=== PATIENT | male | born 1975 | race Caucasian/White ===

== ENCOUNTER → 2024-06-02 07:26 | Outpatient (REF) | payer BC, SELFPAY | LOC: HWRAD 07:26 | PROVIDERS: ATTENDING PHYSICIAN Internal Medicine Gastroenterology; FAMILY PHYSICIAN Family Medicine | DX: K74.00 Hepatic fibrosis, unspecified (principal) | CPT/HCPCS: 76700 ==

== ENCOUNTER 2024-07-14 08:00 | Day surgery (SDC) | payer BC, SELFPAY ==
[2024-07-14 14:21] VITALS: BMI 32.6
[2024-07-14 14:30] LABS: Glucose - Point of Care 78 mg/dl (70-99)
--- NOTE | 2024-07-14 14:58 | PTCARENOTE ---
Report given to Dary RHODES.
[2024-07-14 16:56] VITALS: BP 90/75
[2024-07-14 17:00] VITALS: BP 107/55
[2024-07-14 17:15] VITALS: BP 116/70
[2024-07-14 17:24] VITALS: BP 114/70
== END 2024-07-14 16:53 | disposition home or self-care (01) ==
LOC: GI 08:00
PROVIDERS: ATTENDING PHYSICIAN Internal Medicine Gastroenterology
DX: Z09 Encounter for follow-up examination after completed treatment for conditions other than malignant neoplasm (principal); K31.7 Polyp of stomach and duodenum; K31.89 Other diseases of stomach and duodenum
CPT/HCPCS: 43251; 43239; 43237; 88305; 82962; 88313

== ENCOUNTER → 2024-08-12 10:12 | Outpatient (REF) | payer BC, SELFPAY | LOC: PAVMRI 10:12 | PROVIDERS: ATTENDING PHYSICIAN Internal Medicine Gastroenterology; FAMILY PHYSICIAN Psychiatry & Neurology Neurology | DX: K74.00 Hepatic fibrosis, unspecified (principal) | CPT/HCPCS: 74183; A9575 ==

== ENCOUNTER → 2024-08-18 11:57 | Outpatient (REF) | payer BC, SELFPAY | LOC: RAD 11:57 | PROVIDERS: ATTENDING PHYSICIAN Nurse Practitioner Adult Health | DX: R06.00 Dyspnea, unspecified (principal) | CPT/HCPCS: 71046 ==

== ENCOUNTER → 2024-11-27 10:25 | Outpatient (REF) | payer BC, SELFPAY | LOC: RAD 10:25 | PROVIDERS: ATTENDING PHYSICIAN Family Medicine | DX: R10.9 Unspecified abdominal pain (principal) | CPT/HCPCS: 74018 ==

== ENCOUNTER 2025-03-01 12:08 | Emergency (ER) | payer BC, SELFPAY ==
[2025-03-01 12:14] VITALS: BP 152/90
[2025-03-01 12:28] VITALS: BMI 28.9
--- NOTE | 2025-03-01 12:58 | ED.GENMED ---
History of Present Illness
General
Chief Complaint: Skin Problem
Source: patient
Exam Limitations: none
Time Seen by Provider: 03/01/25 12:39
Nursing documentation reviewed up to this point in time: agreed with
History of Present Illness
History of Present Illness:
Patient presents to ED secondary to persistent right hand swelling with initial itching sensation, which now has become painful, since yesterday afternoon. [place] He had come out of the water, when he
noticed initial itching sensation with puncture wound on top of his right hand. Since then, symptoms have persisted or worsened. Denies fever or chills. Denies previous history of similar symptoms.
Past History
Past History
ED Past Medical History: Arrthythmia (VT), Cancer (Non-Hodgkin's lymphoma ), GERD, HTN, Psychiatric (Anxiety, ADHD ) and Other (Asthmatic bronchitis, cardiomyopathy status post chemotherapy as a child from Adriamycin, pulmonary fibrosis status post
radiation therapy only 40% of lung capacity, Non Hodgkins Lymphoma,)
ED Past Surgical History: Cardiac (Cardiac catheter with EPS study in 1992 ), Orthopedic (Left ankle surgery ) and Other (Radiation therapy to chest for non-Hodgkin's lymphoma in 1982 and radiation therapy 2 testicular lymphoma in 1984. )
Social History
Tobacco: Non-smoker
Alcohol: Occasional (Two glasses of vodka/night)
Personal:
Living: with family
Review of Systems
Review of Systems
Allergies reviewed?: Yes
All Other Systems: ROS reviewed and negative except as documented in HPI and ROS
Constitutional: Reports no symptoms; Denies fever
Musculoskeletal: Reports other (Hand swelling with pain)
Skin: Reports itching
Neurological: Reports no symptoms
Phy Exam
Physical Exam
Physical Exam:
Physical Exam
General: mild distress, not acutely ill. afebrile
Head: nc/at. eomi
Neck: supple. no meningeal signs
Neuro: alert and oriented x 3. no focal neurological deficits
Skin: puncture wound noted over dorsal aspect of right hand between 3rd/4th finger with diffuse swelling without warmth/ecchymosis
Psychiatric: well kept. interactive and cooperative
Extremities: no edema. no calf tenderness.
Course
Orders/Labs/Results
Orders:
Orders
03/01/25 13:03
Amoxicillin 875 mg/Clav 125 mg [Augmentin 875 mg/125 mg] 1 tablet PO NOW STA
Dexamethasone Pf [Decadron] 10 mg PO NOW STA
Vital Signs
Initial and Last Documented VS:
Initial Vital Signs
Temp Pulse Resp BP Pulse Ox
98.7 F 102 16 152/90 98
03/01/25 12:14 03/01/25 12:14 03/01/25 12:14 03/01/25 12:14 03/01/25 12:14
Last Documented Vital Signs
Temp Pulse Resp BP Pulse Ox
98.7 F 102 16 152/90 98
03/01/25 12:14 03/01/25 12:14 03/01/25 12:14 03/01/25 12:14 03/01/25 13:03
MDM/Problems Addressed
MDM/Problems Addressed:
History and exam consistent with likely local inflammatory response to unknown insect or others. Discussed conservative management via ice/Benadryl/steroids. However, given patient's previous history of skin infection, patient requesting empiric
antibiotics, which I believe is not unreasonable. As such, patient will be started on Augmentin x 3 days, with specific instructions to follow-up with PCP for reevaluation in 2 to 3 days, or to return to ED with worsening symptoms.
*Pulse Oximetry
SaO2: 98
Oxygen Mode of Delivery: Room air
Patient hypoxic: no
*Critical Care Note
Total Time (30-74mins, 75-104mins- exclusive of procedures): Not Applicable
ED Attending Note
-
Portions of this chart may have been created with voice recognition software.� Occasional wrong word or��sound alike� substitutions may have occurred due to the inherent limitations of voice recognition software.
Discharge Plan
Departure
Patient Disposition: Home (Routine Discharge)
Date of Disposition: 03/01/25
Time of Disposition: 13:03
Patient with high blood pressure during this ER visit?: Yes
Condition: Good
Discharge Problem:
Local inflammatory response
Instructions: Wound Care (DC)
Prescriptions:
New
amoxicillin-pot clavulanate 875-125 mg tablet
1 tab PO BID Qty: 5 0RF
No Action
pantoprazole 40 mg Tablet,Delayed Release (Dr/Ec)
20 mg PO DAILY
lorazepam 1 mg Tablet
1 mg PO BID
losartan 100 mg Tablet
100 mg PO DAILY
simethicone [Gas-X] 80 mg Tablet,Chewable
80 mg PO DAILY
nebivolol [Bystolic] 10 mg Tablet
10 mg PO BID
desvenlafaxine succinate [Pristiq] 50 mg Tablet Extended Release 24 Hr
50 mg PO DAILY
Repatha Syringe 140 mg/mL Syringe
140 mg SC Q2W
dextroamphetamine-amphetamine [Adderall] 10 mg Tablet
10 mg PO TID
dextroamphetamine-amphetamine [Adderall XR] 20 mg Capsule,Extended Release 24hr
20 mg PO DAILY
Rx Instructions:
extended release
testosterone 50 mg/5 gram (1 %) Gel
2 tube TRANSDERMAL DAILY
Trulance 3 mg Tablet
3 mg PO DAILY
Referrals:
Yonathan Miller DO [Family Provider, Family Practice]
Activity Restrictions/Additional Instructions:
As discussed, please follow-up with your primary care physician for reevaluation this week. Please consider return to ED with worsening symptoms. In the meantime, recommend aggressively elevating the affected hand along with ice application, as
well as Benadryl. Your prescription has been sent electronically to [facility]
Interventions
Interventions:
*Risk Screen - Suicide Last Done: 03/01/25 12:14
*General Assessment Last Done: 03/01/25 12:28
*Neglect/Abuse Screening Last Done: 03/01/25 12:14
*ED- Fall Risk Assessment Last Done: 03/01/25 12:28
*ED COVID-19 Vaccine History Last Done: 03/01/25 12:28
*Nursing Disposition Last Done: 03/01/25 13:12
ED-Skin Assessment Last Done: 03/01/25 12:28
Discharge Date and Time
Discharge Date/Time: 03/01/25 13:12
Print Language: [id number]
[2025-03-01] MEDS: AUGMENTIN 875 MG/125 MG 1 TABLET PO (13:08)
[2025-03-01] MEDS: DECADRON 10 MG PO (13:08)
== END 2025-03-01 13:12 | disposition home or self-care (01) ==
LOC: EMR 12:08
PROVIDERS: EMERGENCY PHYSICIAN Emergency Medicine; FAMILY PHYSICIAN Family Medicine
DX: S61.431A Puncture wound without foreign body of right hand, initial encounter (principal); R22.31 Localized swelling, mass and lump, right upper limb; L29.9 Pruritus, unspecified; I49.9 Cardiac arrhythmia, unspecified; I10 Essential (primary) hypertension; I42.9 Cardiomyopathy, unspecified; J84.10 Pulmonary fibrosis, unspecified; F41.9 Anxiety disorder, unspecified; F90.9 Attention-deficit hyperactivity disorder, unspecified type; Z85.72 Personal history of non-Hodgkin lymphomas; W57.XXXA Bitten or stung by nonvenomous insect and other nonvenomous arthropods, initial encounter; Y93.11 Activity, swimming; Y92.832 Beach as the place of occurrence of the external cause
CPT/HCPCS: 99283

== ENCOUNTER 2025-04-06 06:26 | Day surgery (SDC) | payer BC, SELFPAY ==
[2025-04-06 07:45] LABS: Glucose - Point of Care 83 mg/dl (70-99)
== END 2025-04-06 09:34 | disposition home or self-care (01) ==
LOC: GI 06:26
PROVIDERS: ATTENDING PHYSICIAN Internal Medicine Gastroenterology
DX: Z12.11 Encounter for screening for malignant neoplasm of colon (principal); R19.7 Diarrhea, unspecified; K57.30 Diverticulosis of large intestine without perforation or abscess without bleeding; K64.9 Unspecified hemorrhoids; Z86.0100 Personal history of colon polyps, unspecified
CPT/HCPCS: 45380; 82962; 88305

== ENCOUNTER → 2025-06-28 16:18 | Outpatient (REF) | payer BC, SELFPAY | LOC: RAD 16:18 | PROVIDERS: ATTENDING PHYSICIAN Nurse Practitioner Adult Health; FAMILY PHYSICIAN Family Medicine | DX: J06.9 Acute upper respiratory infection, unspecified (principal); R05.3 Chronic cough | CPT/HCPCS: 71046 ==